=== PATIENT | female | born 1950 | race Caucasian/White ===

== ENCOUNTER 2023-11-08 09:38 | Inpatient (IN) | payer OTHER ==
[~2023-11-08] VITALS: Ht 157.5 cm; Wt 68.5 kg
[2023-11-08] VITALS (8 sets, daily range): BP systolic 84–167; BP diastolic 36–78; PULSE 105–133; RESP 18–20; TEMP 91.5–98; O2SAT 96–100
[2023-11-08] MEDS: NACL 0.9% 500 ML IV ONE (09:45)
[2023-11-08 10:05] LABS: BASOPHILS # (AUTO) 0.1 K/uL (0.00-0.22); BASOPHILS % (AUTO) 0.7 % (0.0-2.0); EOSINOPHILS # (AUTO) 0.1 K/uL (0-0.4); EOSINOPHILS % (AUTO) 0.7 % (0.0-4.0); HEMATOCRIT 34.8 % (36-48); HEMOGLOBIN 10.8 g/dL (12.0-16.0); LYMPHOCYTES # (AUTO) 3.8 K/uL (2.5-16.5); LYMPHOCYTES % (AUTO) 20.6 % (20.5-51.1); MEAN CORPUSCULAR HEMOGLOBIN 31 pg (27-31); MEAN CORPUSCULAR HGB CONC 31 g/dL (33-37); MEAN CORPUSCULAR VOLUME 98.8 fL (80-94); MONOCYTES # (AUTO) 0.5 K/uL (0.8-1.0); MONOCYTES % (AUTO) 2.5 % (1.7-9.3); NEUTROPHILS # (AUTO) 13.8 K/uL (1.8-7.7); NEUTROPHILS % (AUTO) 75.5 % (42.2-75.2); PLATELET COUNT (AUTO) 344 K/uL (140-450); RED BLOOD CELL COUNT(AUTO) 3.52 MIL/uL (4.20-5.40); RED CELL DISTRIBUTION WIDTH 17.2 % (11.6-13.7); WHITE BLOOD COUNT (AUTO) 18.3 K/uL (4.8-10.8)
[2023-11-08 10:29] LABS: ANION GAP 22.7 (8-16); CALCIUM 9.2 mg/dL (8.5-10.1); CARBON DIOXIDE 20.6 mmol/L (21-32); CHLORIDE 103 mmol/L (98-107); GLUCOSE 282 mg/dL (74-106); POTASSIUM 4.3 mmol/L (3.5-5.1); SODIUM SERUM 142 mmol/L (136-145); UREA NITROGEN, BLOOD 55 mg/dL (7-18)
[2023-11-08 10:30] LABS: CREATININE 9.2 mg/dL (0.6-1.3)
[2023-11-08 10:31] LABS: BILIRUBIN,DIRECT 0.3 mg/dL (0.0-0.3); TOTAL BILIRUBIN 0.5 mg/dL (0.0-1.0); TOTAL PROTEIN, SERUM 8.1 g/dL (6.4-8.2)
[2023-11-08 10:32] LABS: MAGNESIUM 1.9 mg/dL (1.8-2.4); PHOSPHORUS 8.2 mg/dL (2.5-4.9)
[2023-11-08 10:37] LABS: APPEARANCE,URINE CLEAR (CLEAR); BILIRUBIN,URINE NEGATIVE (NEGATIVE); BLOOD, URINE TRACE-I (NEGATIVE); COLOR,URINE YELLOW (YELLOW); LEUKOCYTE ESTERASE ,URINE NEGATIVE (NEGATIVE); NITRITE, URINE NEGATIVE (NEGATIVE); PROTEIN,URINE 2+ (NEGATIVE); UGLUCOSE 2+ (NEGATIVE); UROBILINOGEN,URINE 0.2 EU/dL (0.2 - 1)
[2023-11-08 10:43] LABS: BACTERIA,URINE 10-30 (MOD) /HPF (None Seen)
[2023-11-08 10:44] LABS: FINE GRANULAR CASTS,URINE 0-10 /LPF (None Seen); MUCUS,URINE 1+ /LPF (None Seen); SQUAMOUS EPITHELIAL CELL,UR 4-10 (MOD) /LPF (0-3 (FEW))
[2023-11-08 10:45] LABS: ALANINE AMINOTRANSFERASE 39 U/L (12-78); ALBUMIN 2.6 g/dL (3.4-5.0); ALKALINE PHOSPHATASE 251 U/L (50-136); ASPARTATE AMINOTRANSFERASE 59 U/L (15-37); CREATINE KINASE, TOTAL 39 U/L (26-192)
[2023-11-08 10:47] LABS: ALCOHOL, BLOOD < 3 mg/dL (<10); SALICYLATE < 2.8 mg/dL (2.8-20.0)
[2023-11-08 10:48] LABS: ACETAMINOPHEN < 0.5 ug/ml (10-30)
[2023-11-08 11:10] LABS: AMPHETAMINE, URINE NEGATIVE ng/ml (NEG <=1000); BARBITURATE, URINE NEGATIVE ng/ml (NEG <=200); BENZODIAZEPINE, URINE NEGATIVE ng/mL (NEG <=200); COCAINE, URINE NEGATIVE ng/mL (NEG <=300)
[2023-11-08 11:11] LABS: CANNABINOID, URINE NEGATIVE ng/mL (NEG <=50); OPIATE, URINE NEGATIVE ng/mL (NEG <=2000); PHENCYCLIDINE SCREEN,URINE NEGATIVE ng/mL (NEG <=25)
[2023-11-08] MEDS ORDERED: VANCOMYCIN 1,000 MG VIAL ONE (11:28)
[2023-11-08 11:33] LABS: FLU A ANTIGEN NEGATIVE (NEGATIVE)
[2023-11-08] MEDS: VANCOMYCIN 1,000 MG in DEXTROSE 5% 250 ML IV ONE (11:33)
[2023-11-08 11:34] LABS: FLU B ANTIGEN POSITIVE (NEGATIVE)
[2023-11-08] MEDS: CEFEPIME 500 MG in DEXTROSE 5% 50 ML IV ONE (11:53)
[2023-11-08] MEDS: ONDANSETRON 4 MG/2 ML VIAL IVP ONE (12:28)
[2023-11-08] MEDS ORDERED: ACETAMINOPHEN 325 MG TAB PO PRN (16:15)
[2023-11-08] MEDS ORDERED: MORPHINE SULFATE 2 MG/ML SYR IVP PRN (16:15)
[2023-11-08] MEDS ORDERED: OSELTAMIVIR PHOSPHATE 30 MG CAP PO SCH (16:30)
[2023-11-08] MEDS: ALBUTEROL 0.083% 2.5 MG/3 ML NEBU INH PRN (16:38)
[2023-11-08] MEDS ORDERED: ASPI-1794 PO (17:32)
[2023-11-08] MEDS ORDERED: LEVO0.1T19 PO (17:32)
[2023-11-08] MEDS ORDERED: PANT40EC PO (17:32)
[2023-11-08] MEDS ORDERED: ROSU10TA77 PO (17:32)
[2023-11-08] MEDS ORDERED: ESCI5TAB18 PO (17:32)
[2023-11-08] MEDS ORDERED: ALBUTEROL SULFATE/IPRATROPIU 3 ML SOL IH PRN (20:55)
[2023-11-08] MEDS ORDERED: CEFEPIME 1,000 MG in DEXTROSE 5% 50 ML IV SCH (21:00)
[2023-11-08] MEDS ORDERED: VANCOMYCIN PER PHARMACY MC PRN (21:00)
[2023-11-08] MEDS: NACL 0.9% 1,000 ML IV SCH (21:34)
[2023-11-08 21:46] LABS: LACTIC ACID 5.4 mmol/L (0.4-2.0)
[2023-11-09] VITALS (9 sets, daily range): BP systolic 135–159; BP diastolic 68–92; PULSE 98–138; RESP 18–20; TEMP 97.2–100.3; O2SAT 94–100
[2023-11-09 06:25] LABS: BASOPHILS % (AUTO) 0.1 % (0.0-2.0); HEMATOCRIT 33.5 % (36-48); HEMOGLOBIN 10.6 g/dL (12.0-16.0); LYMPHOCYTES # (AUTO) 1.4 K/uL (2.5-16.5); LYMPHOCYTES % (AUTO) 9.8 % (20.5-51.1); MEAN CORPUSCULAR HEMOGLOBIN 30 pg (27-31); MEAN CORPUSCULAR HGB CONC 32 g/dL (33-37); MEAN CORPUSCULAR VOLUME 95.5 fL (80-94); MONOCYTES # (AUTO) 0.5 K/uL (0.8-1.0); MONOCYTES % (AUTO) 3.4 % (1.7-9.3); NEUTROPHILS # (AUTO) 12.4 K/uL (1.8-7.7); NEUTROPHILS % (AUTO) 86.7 % (42.2-75.2); PLATELET COUNT (AUTO) 260 K/uL (140-450); RED BLOOD CELL COUNT(AUTO) 3.51 MIL/uL (4.20-5.40); RED CELL DISTRIBUTION WIDTH 17.1 % (11.6-13.7); WHITE BLOOD COUNT (AUTO) 14.3 K/uL (4.8-10.8)
[2023-11-09 06:48] LABS: ALANINE AMINOTRANSFERASE 28 U/L (12-78); ALBUMIN 2.3 g/dL (3.4-5.0); ALKALINE PHOSPHATASE 173 U/L (50-136); ANION GAP 21.6 (8-16); ASPARTATE AMINOTRANSFERASE 48 U/L (15-37); CALCIUM 9.1 mg/dL (8.5-10.1); CARBON DIOXIDE 18.2 mmol/L (21-32); CHLORIDE 105 mmol/L (98-107); GLUCOSE 210 mg/dL (74-106); MAGNESIUM 1.9 mg/dL (1.8-2.4); PHOSPHORUS 4.3 mg/dL (2.5-4.9); POTASSIUM 5.8 mmol/L (3.5-5.1); SODIUM SERUM 139 mmol/L (136-145); TOTAL BILIRUBIN 0.6 mg/dL (0.0-1.0); TOTAL PROTEIN, SERUM 7.5 g/dL (6.4-8.2)
[2023-11-09 07:00] LABS: UREA NITROGEN, BLOOD 67 mg/dL (7-18)
[2023-11-09 07:01] LABS: CREATININE 9.6 mg/dL (0.6-1.3)
[2023-11-09] MEDS: ENOXAPARIN 30 MG/0.3 ML SYR SUBQ SCH (09:28)
[2023-11-09 13:20] LABS: INR 1.11 (0.8-1.2); PARTIAL THROMBOPLASTIN TIME 24.5 secs (22-35.6); PROTHROMBIN TIME 11.5 secs (10.8-13.4)
[2023-11-09] MEDS: ONDANSETRON 4 MG/2 ML VIAL IVP PRN (16:03)
[2023-11-09] MEDS: SODIUM ZIRCONIUM CYCLOSILICATE 10 GM POWD.PACK PO SCH (19:58)
[2023-11-09] MEDS: FUROSEMIDE 40 MG/4 ML VIAL IVP SCH (19:59)
[2023-11-09] MEDS: SODIUM BICARBONATE 8.4% PFS 50 MEQ/50 ML SYR IVP SCH (19:59)
[2023-11-09] MEDS ORDERED: DEXTROSE 50% 50 ML SYR IVP PRN (20:20)
[2023-11-09] MEDS ORDERED: INSULIN LISPRO SLIDING SCALE 100 UNITS/ML VIAL SUBQ PRN (20:20)
[2023-11-09] MEDS: BLOOD GLUCOSE MONITORING 1 DEV DEV FS SCH (21:40)
[2023-11-09] MEDS: CEFEPIME 500 MG in DEXTROSE 5% 50 ML IV SCH (21:45)
[2023-11-09] MEDS: CEFEPIME 1,000 MG VIAL ONE (21:46)
[2023-11-09] MEDS ORDERED: LIDOCAINE/EPI MPF 2%1:200000 10 ML VIAL INJ ONE (23:35)
[2023-11-10] VITALS (8 sets, daily range): BP systolic 144–168; BP diastolic 69–89; PULSE 82–138; RESP 18–20; TEMP 97.5–98.9; O2SAT 95–100
[2023-11-10] MEDS ORDERED: hydrALAZINE 20 MG/ML VIAL IVP PRN ×2 (05:55→07:15)
[2023-11-10] MEDS: ALBUTEROL SULFATE/IPRATROPIU 3 ML SOL IH SCH (07:20)
[2023-11-10 08:22] LABS: ANION GAP 18.6 (8-16); CALCIUM 8.7 mg/dL (8.5-10.1); CARBON DIOXIDE 22.4 mmol/L (21-32); CHLORIDE 108 mmol/L (98-107); GLUCOSE 206 mg/dL (74-106); SODIUM SERUM 144 mmol/L (136-145)
[2023-11-10 08:28] LABS: UREA NITROGEN, BLOOD 85 mg/dL (7-18)
[2023-11-10 08:29] LABS: CREATININE 9.9 mg/dL (0.6-1.3)
[2023-11-10 08:41] LABS: MAGNESIUM 1.9 mg/dL (1.8-2.4); PHOSPHORUS 7.9 mg/dL (2.5-4.9)
[2023-11-10] MEDS: ASPIRIN 300 MG SUPP RC SCH (09:00)
[2023-11-10] MEDS ORDERED: SODIUM PHOSPHATE 118 ML ENEM RC PRN (14:00)
[2023-11-10] MEDS ORDERED: MORPHINE SULFATE 50 MG in NACL 0.9% 45 ML IV PRN (14:00)
[2023-11-10] MEDS ORDERED: ACETAMINOPHEN 650 MG SUPP RC PRN (14:00)
[2023-11-10] MEDS ORDERED: LORazepam 2 MG/ML VIAL IVP PRN (14:00)
[2023-11-10] MEDS ORDERED: ONDANSETRON 4 MG/2 ML VIAL IVP PRN (14:00)
[2023-11-10] MEDS ORDERED: SCOPOLAMINE 1.5 MG/72 HR PATCH TD PRN (14:00)
[2023-11-10] MEDS ORDERED: HYOSCYAMINE 0.125 MG TAB SL PRN (14:00)
[2023-11-10] MEDS ORDERED: bisacodyL 10 MG SUPP RC PRN (14:00)
[2023-11-10] MEDS ORDERED: SCOP0.333 TD (14:32)
[2023-11-10] MEDS ORDERED: VANCOMYCIN 1,000 MG in DEXTROSE 5% 250 ML IV SCH (15:00)
== END 2023-11-10 19:00 | disposition home or self-care (01) | DRG 871 ==
LOC: MED 09:38 → MTU 16:22
PROVIDERS: ADMIT Internal Medicine; ATTEND Internal Medicine
DX: A41.9 Sepsis, unspecified organism (principal); G93.41 Metabolic encephalopathy; I21.A1 Myocardial infarction type 2; J69.0 Pneumonitis due to inhalation of food and vomit; N18.6 End stage renal disease; J10.00 Influenza due to other identified influenza virus with unspecified type of pneumonia; N39.0 Urinary tract infection, site not specified; I12.0 Hypertensive chronic kidney disease with stage 5 chronic kidney disease or end stage renal disease; A86 Unspecified viral encephalitis; Z20.822 Contact with and (suspected) exposure to COVID-19; K21.9 Gastro-esophageal reflux disease without esophagitis; E78.5 Hyperlipidemia, unspecified; D63.1 Anemia in chronic kidney disease; E03.9 Hypothyroidism, unspecified; E87.5 Hyperkalemia; Z99.2 Dependence on renal dialysis; Z88.0 Allergy status to penicillin; Z79.82 Long term (current) use of aspirin; Z79.899 Other long term (current) drug therapy; Z87.891 Personal history of nicotine dependence
CPT/HCPCS: 36415; 70450; 71045; 71250; 80048; 80053; 80076; 80202; 80305; 81001; 82140; 82550; 82948; 83605; 83735; 84100; 84443; 84484; 85025; 85610; 85730; 87040; 87081; 87086; 93005; 94640; 96365; 96368; 96375; 99291; G0480; G0482; J0692; J1644; J1650; J1815; J1940; J2001; J2270; J2405; J3370; J7060; J7613